=== PATIENT | male | born 1930 | race Caucasian/White ===

== ENCOUNTER 2017-03-19 12:57 | Inpatient (IN) | payer OTHER, BC ==
[~2017-03-19] VITALS: Ht 170.2 cm; Wt 86.0 kg
[~2017-03-19 12:57] MED LIST: ADVAIR 100/501 DISK IH; ALTACE10 MG PO; ASPIRIN81 M2 PO; ATORVASTATIN CA80 MG PO; Aspirin E.C. PO; DILANTIN100 MG PO; ERGOCALCIF50000 UNIT PO; LIPITOR40 MG PO; LOPRESSOR25 MG PO; Lipitor PO; Lopressor PO; NIACIN500 M1 PO; NIASPAN,SLO-NI500 MG PO; NITROGLYCERIN0.4 MG SL; NITROSTAT0.3 MG SL; NITROSTAT0.4 MG SL; Niaspan,Slo-Niacin PO; Nitrostat,NitroQuick SL; PHENOBARBITAL15 MG PO; PHENOBARBITAL16.2 MG PO; PLAVIX75 MG PO; PRILOSEC40 MG PO; Plavix PO; SENNA-S TABLET1 EACH PO; SINGULAIR10 MG PO; ST. JOSEPH ASPI81 MG PO; Singulair PO; TOPROL XL25 MG PO; VITAMIN D31000 UNI2 PO; VITAMIN D31000 UNIT PO; ZEBETA5 MG PO; ZESTRIL2.5 MG PO; Zestril,Prinivil PO
[2017-03-19 13:53] LABS: HEMATOCRIT 40.6 % (38.0-50.0); MCV 91.2 FL (86-99); MEAN PLAT.VOLUME 10.7 uM^3 (9.0-12.4); PLATELET COUNT 149 K/uL (156-360); RBC DIS.WIDTH-CV 12.1 % (11.8-14.6); RBC DIS.WIDTH-SD 40.2 % (39-53); RED BLOOD COUNT 4.45 M/uL (4.00-5.50); WHITE BLOOD COUNT 11.3 K/uL (4.1-10.2)
[2017-03-19 14:02] LABS: CHLORIDE 106 mEq/L (99-109); POTASSIUM 4.6 mEq/L (3.7-5.4); SODIUM 139 mEq/L (136-147)
[2017-03-19 14:03] LABS: GLUCOSE 128 mg/dL (70-99)
[2017-03-19 14:05] LABS: ANION GAP 8 MEQ/L (2-14)
[2017-03-19 14:07] LABS: GFR ESTIMATE (CALCULATED) 38 mL/min/
[2017-03-19 14:08] LABS: UREA NITROGEN (BUN) 32 mg/dL (9-23)
[2017-03-19 14:15] LABS: TROP-I INTERPRETATION NEGATIVE; TROPONIN-I < 0.01 ng/mL (0.0-0.30)
[2017-03-19 14:57] LABS: PHENOBARBITAL < 5.0 MCG/ML (15-40)
[2017-03-19] MEDS ORDERED: METOPROLOL SUCC25 MG PO (16:29)
[2017-03-19] MEDS ORDERED: OMEPRAZOLE40 M1 PO (16:30)
[2017-03-19 20:09] VITALS: BP 124/62
[2017-03-19 22:05] LABS: TROP-I INTERPRETATION NEGATIVE; TROPONIN-I 0.02 ng/mL (0.0-0.30)
[2017-03-19 23:39] VITALS: BP 115/59
[2017-03-20 03:56] VITALS: BP 132/70
[2017-03-20 05:17] LABS: CHLORIDE 105 mEq/L (99-109); POTASSIUM 4.1 mEq/L (3.7-5.4); SODIUM 137 mEq/L (136-147)
[2017-03-20 05:19] LABS: GLUCOSE 90 mg/dL (70-99)
[2017-03-20 05:20] LABS: ANION GAP 7 MEQ/L (2-14)
[2017-03-20 05:22] LABS: GFR ESTIMATE (CALCULATED) 44 mL/min/; HEMATOCRIT 36.3 % (38.0-50.0); MCHC 33.9 G/DL (30.0-36.0); MCV 91.4 FL (86-99); MEAN PLAT.VOLUME 11.1 uM^3 (9.0-12.4); PLATELET COUNT 140 K/uL (156-360); RBC DIS.WIDTH-CV 12.1 % (11.8-14.6); RBC DIS.WIDTH-SD 40.6 % (39-53); RED BLOOD COUNT 3.97 M/uL (4.00-5.50); WHITE BLOOD COUNT 8.3 K/uL (4.1-10.2)
[2017-03-20 05:23] LABS: UREA NITROGEN (BUN) 31 mg/dL (9-23)
[2017-03-20 05:24] LABS: TROP-I INTERPRETATION NEGATIVE; TROPONIN-I 0.01 ng/mL (0.0-0.30)
[2017-03-20 07:35] VITALS: BP 141/70
[2017-03-20 11:47] VITALS: BP 156/74
[2017-03-20 15:27] VITALS: BP 157/74
[2017-03-20 19:35] VITALS: BP 141/67
[2017-03-20 23:37] VITALS: BP 159/77
[2017-03-21 04:00] VITALS: BP 168/73
[2017-03-21 06:41] LABS: HEMATOCRIT 34.8 % (38.0-50.0); MCH 32.2 PG (29.0-34.0); MCHC 35.1 G/DL (30.0-36.0); MCV 91.8 FL (86-99); MEAN PLAT.VOLUME 10.5 uM^3 (9.0-12.4); PLATELET COUNT 134 K/uL (156-360); RBC DIS.WIDTH-CV 12.3 % (11.8-14.6); RBC DIS.WIDTH-SD 40.9 % (39-53); RED BLOOD COUNT 3.79 M/uL (4.00-5.50); WHITE BLOOD COUNT 5.1 K/uL (4.1-10.2)
[2017-03-21 07:02] LABS: ANION GAP 7 MEQ/L (2-14); CHLORIDE 110 MEQ/L (99-109); GFR ESTIMATE (CALCULATED) 56 mL/min/; GLUCOSE 87 mg/dL (70-99); POTASSIUM 4.4 MEQ/L (3.7-5.4); SAMPLE HEMOLYSIS CHECK 0; SAMPLE ICTERIC CHECK 0; SAMPLE LIPEMIA CHECK 0; SODIUM 141 MEQ/L (136-147); UREA NITROGEN (BUN) 27 mg/dL (9-23)
[2017-03-21 07:22] VITALS: BP 139/68
[2017-03-21 08:21] LABS: INTERNAL CONTROL VALID? YES
[2017-03-21 10:49] VITALS: BP 138/70
[2017-03-21 19:18] VITALS: BP 130/63
[2017-03-22 00:31] VITALS: BP 160/72
[2017-03-22 03:53] VITALS: BP 150/72
[2017-03-22 07:11] LABS: ANION GAP 6 MEQ/L (2-14); CHLORIDE 110 MEQ/L (99-109); GFR ESTIMATE (CALCULATED) 51 mL/min/; GLUCOSE 83 mg/dL (70-99); POTASSIUM 4.3 MEQ/L (3.7-5.4); SAMPLE HEMOLYSIS CHECK 0; SAMPLE ICTERIC CHECK 0; SAMPLE LIPEMIA CHECK 0; SODIUM 142 MEQ/L (136-147); UREA NITROGEN (BUN) 21 mg/dL (9-23)
[2017-03-22 07:41] VITALS: BP 157/74
[2017-03-22 07:46] VITALS: BP 117/68
[2017-03-22 10:49] VITALS: BP 152/71
[2017-03-22 20:13] VITALS: BP 162/75
[2017-03-23 00:05] VITALS: BP 177/85
[2017-03-23 07:25] VITALS: BP 146/69
[2017-03-23 16:16] VITALS: BP 118/61
[2017-03-23 23:51] VITALS: BP 125/64
[2017-03-24 03:33] VITALS: BP 173/86
[2017-03-24 08:15] VITALS: BP 153/76
[2017-03-24] MEDS ORDERED: AMLODIPINE BESY10 MG PO (13:50)
[2017-03-24] MEDS ORDERED: CEFDINIR300 MG PO (13:50)
== END 2017-03-24 15:12 | disposition home health service (06) | DRG 190 ==
LOC: EME 12:57 → 3EAST 15:57 → EDOF 15:57 → 3EAST 19:28
PROVIDERS: Emergency Medicine; Internal Medicine; Physician Assistant
DX: J44.0 Chronic obstructive pulmonary disease with (acute) lower respiratory infection (principal); J18.9 Pneumonia, unspecified organism; J44.1 Chronic obstructive pulmonary disease with (acute) exacerbation; I12.9 Hypertensive chronic kidney disease with stage 1 through stage 4 chronic kidney disease, or unspecified chronic kidney disease; N18.3 Chronic kidney disease, stage 3 (moderate); I25.10 Atherosclerotic heart disease of native coronary artery without angina pectoris; E78.5 Hyperlipidemia, unspecified; G40.909 Epilepsy, unspecified, not intractable, without status epilepticus; K21.9 Gastro-esophageal reflux disease without esophagitis; I25.2 Old myocardial infarction; Z85.048 Personal history of other malignant neoplasm of rectum, rectosigmoid junction, and anus; Z86.73 Personal history of transient ischemic attack (TIA), and cerebral infarction without residual deficits; Z90.49 Acquired absence of other specified parts of digestive tract; Z93.3 Colostomy status; Z95.5 Presence of coronary angioplasty implant and graft; Z79.82 Long term (current) use of aspirin; Z75.1 Person awaiting admission to adequate facility elsewhere; Z87.891 Personal history of nicotine dependence; Z88.2 Allergy status to sulfonamides
CPT/HCPCS: 71020; 80048; 80048 91; 80184; 80185; 83605; 84145 90; 84484; 85027; 87040; 87070; 87205; 87449; 87651 90; 93005; 94640; 94640 76; 97530 GP; 99202; 99281; 99285; J0456; J0696; J1644; J7030; J7050